=== PATIENT | female | born 1995 | race Caucasian/White ===

== ENCOUNTER 2016-10-16 15:23 | Inpatient (IN) | payer MEDICAID ==
[~2016-10-16] VITALS: Ht 157.5 cm; Wt 57.6 kg
[2016-10-16] MEDS ORDERED: METHYLPRED SOD SUCC 125 MG/2 ML VIAL ONE (16:05)
[2016-10-16] MEDS ORDERED: DUONEB INH ONE ×2 (16:13)
[2016-10-16] MEDS ORDERED: NEB-ALBUTEROL 2.5 MG/3 ML INH ONE (18:36)
[2016-10-16] MEDS ORDERED: DEXTROSE 5% SALINE 0.225% 1,000 ML IV SCH (19:55)
[2016-10-16] MEDS ORDERED: ACETAMINOPHEN 325 MG TAB PO PRN (20:00)
[2016-10-16 21:30] VITALS: BP_SYST 118; RESP 36; TEMP 98.4; Ht 157.5 cm; Wt 57.6 kg
[2016-10-16] MEDS: METHYLPRED SOD SUCC 125 MG/2 ML VIAL IV SCH (21:50)
[2016-10-16] MEDS: NEB-ATROVENT INH SCH (22:02)
[2016-10-16] MEDS: NEB-ALBUTEROL 2.5 MG/3 ML INH SCH (22:03)
[2016-10-16 22:09] VITALS: RESP 28
[2016-10-16 23:41] VITALS: BP_SYST 117; RESP 36; TEMP 98
[2016-10-17] MEDS ORDERED: NEB-ALBUTEROL 2.5 MG/3 ML INH PRN (02:00)
[2016-10-17] MEDS: NEB-ATROVENT INH SCH ×6 (02:21→23:08)
[2016-10-17] MEDS: NEB-ALBUTEROL 2.5 MG/3 ML INH SCH ×6 (02:22→23:08)
[2016-10-17 03:58] VITALS: BP_SYST 119; RESP 32; TEMP 97.7
[2016-10-17] MEDS: METHYLPRED SOD SUCC 125 MG/2 ML VIAL IV SCH ×4 (04:24→22:20)
[2016-10-17] MEDS: CEFTRIAXONE 1 GM in SODIUM CHLORIDE 0.9% 50 ML IV SCH ×2 (06:15→18:45)
[2016-10-17 07:58] VITALS: BP_SYST 115; RESP 16; TEMP 97.5
[2016-10-17 11:38] VITALS: BP_SYST 120; RESP 16; TEMP 97.9
[2016-10-17 16:28] VITALS: BP_SYST 129; RESP 18; TEMP 97.5
[2016-10-17 20:03] VITALS: BP_SYST 119; RESP 20; TEMP 98.1
[2016-10-17 23:15] VITALS: BP_SYST 130; RESP 18
[2016-10-18] MEDS: NEB-ALBUTEROL 2.5 MG/3 ML INH SCH ×5 (02:25→18:39)
[2016-10-18] MEDS: NEB-ATROVENT INH SCH ×5 (02:25→18:39)
[2016-10-18 03:49] VITALS: BP_SYST 131; RESP 20; TEMP 97.3
[2016-10-18] MEDS: METHYLPRED SOD SUCC 125 MG/2 ML VIAL IV SCH (03:51)
[2016-10-18] MEDS: CEFTRIAXONE 1 GM in SODIUM CHLORIDE 0.9% 50 ML IV SCH ×2 (05:03→18:07)
[2016-10-18 07:45] VITALS: BP_SYST 119; RESP 20; TEMP 97.7
[2016-10-18] MEDS: NEB-BUDESONIDE 0.5 MG INH SCH ×2 (10:16→18:39)
[2016-10-18] MEDS ORDERED: METHYLPRED SOD SUCC 40 MG VIAL IV ONE (12:00)
[2016-10-18 12:46] VITALS: BP_SYST 126; RESP 18; TEMP 97.5
[2016-10-18 16:12] VITALS: BP_SYST 126; RESP 16; TEMP 98.1
[2016-10-18 19:39] VITALS: BP_SYST 123; RESP 16; TEMP 98.2
[2016-10-18 20:32] VITALS: BP_SYST 123; RESP 16; TEMP 98.2
== END 2016-10-18 21:26 | disposition home or self-care (01) | DRG 194 ==
LOC: ENRESERVDT → ENRESERVTM → ER 15:23 → EMR 19:22 → 3S 21:11
PROVIDERS: ADMIT Pediatrics; ATTEND Pediatrics
DX: J18.9 Pneumonia, unspecified organism (principal); J45.901 Unspecified asthma with (acute) exacerbation
CPT/HCPCS: 36415; 71020; 71260; 80053; 81001; 84703; 85025; 87088; 87804; 94640; 94799; 96365; 96375